=== PATIENT | male | born 1960 | race Caucasian/White ===

== ENCOUNTER 2018-08-29 14:52 | Emergency (ER) | payer OTHER ==
[~2018-08-29] VITALS: Ht 185.4 cm; Wt 132.7 kg
[2018-08-29] MEDS ORDERED: LISINOPRIL5 MG PO (15:02)
[2018-08-29] MEDS ORDERED: GLUCOPHAGE500 MG PO (15:03)
[2018-08-29] MEDS ORDERED: KEFLEX500 MG PO (16:50)
[2018-08-29] MEDS ORDERED: TRIAMCINOLONE A15 G1 TOP (16:50)
== END 2018-08-29 16:59 | disposition home or self-care (01) ==
LOC: ED 14:52
DX: L03.115 Cellulitis of right lower limb (principal); L40.9 Psoriasis, unspecified; E11.65 Type 2 diabetes mellitus with hyperglycemia; I10 Essential (primary) hypertension; E78.5 Hyperlipidemia, unspecified; Z88.8 Allergy status to other drugs, medicaments and biological substances; Z79.899 Other long term (current) drug therapy; Z79.84 Long term (current) use of oral hypoglycemic drugs
CPT/HCPCS: 80053; 85025; 96365; 99283-25; J0696